=== PATIENT | female | born 1990 | race Caucasian/White ===

== ENCOUNTER → 2016-06-09 | Outpatient (CLI) | payer MEDICAID | LOC: SP 13:21 | PROVIDERS: ATTEND Specialist | DX: M79.606 Pain in leg, unspecified (principal); M79.89 Other specified soft tissue disorders | CPT/HCPCS: 93970 ==

== ENCOUNTER 2016-09-18 12:57 | Emergency (ER) | payer MEDICAID ==
[2016-09-18 13:16] VITALS: BP 133/101
--- NOTE | 2016-09-18 13:21 | ER Document Report ---
ED Medical Screen (RME) - General Chief Complaint: Nausea Stated Complaint: POSSIBLE REACTION Notes: This 26-year-old female patient comes emergency room complaining of nausea and detoxing from opiates. She reports she took naltrexone at 11:00 today. She took some Xanax and it is working now and she feels better. I have greeted and performed a rapid initial assessment of this patient. A comprehensive ED assessment and evaluation of the patient, analysis of test results and completion of the medical decision making process will be conducted by additional ED providers. TRAVEL OUTSIDE OF THE [place] IN LAST 30 DAYS: No - Related Data Allergies/Adverse Reactions: No Known Allergies Allergy (Verified 09/18/16 13:18) Past Medical History - Past Medical History Cardiac Medical History: Reports: Hx DVT Renal/ Medical History: Denies: Hx Peritoneal Dialysis GI Medical History: Reports: Hx Gastroesophageal Reflux Disease - Immunizations Immunizations up to date: Yes Hx Diphtheria, Pertussis, Tetanus Vaccination: Yes Physical Exam - Vital signs Vitals: Temp Pulse Resp BP Pulse Ox 97.7 F 70 18 133/101 H 100 09/18/16 13:13 09/18/16 13:13 09/18/16 13:13 09/18/16 13:13 09/18/16 13:13 Course - Vital Signs Vital signs: Temp Pulse Resp BP Pulse Ox 97.7 F 70 18 133/101 H 100 09/18/16 13:13 09/18/16 13:13 09/18/16 13:13 09/18/16 13:13 09/18/16 13:13
== END 2016-09-19 03:51 | disposition left against medical advice (07) ==
LOC: ER 12:57
DX: R11.0 Nausea (principal); Z53.20 Procedure and treatment not carried out because of patient's decision for unspecified reasons; Z86.718 Personal history of other venous thrombosis and embolism
CPT/HCPCS: 99281

== ENCOUNTER 2017-05-08 16:22 | Emergency (ER) | payer MEDICAID ==
[2017-05-08] MEDS ORDERED: LIDOCAINE 1% INJ-PF (10 MG/ML) 30 ML SDV INJ ONE (17:32)
--- NOTE | 2017-05-08 17:36 | ER Document Report ---
HPI - HPI Pain Level: 4 Notes: Patient is a 26-year-old female no significant past medical history presents ED complaining of a laceration to her posterior right fifth digit status post punching glass prior to arrival. Spouse states that the glass was the kind that breaks in large pieces. Patient states that immediately after cutting it she applied pressure and wrapped it and has not noticed any significant bleeding. Patient states that she is still able to feel her finger and is able to move it without any difficulties aside from the discomfort at the laceration site. She denies any history of MRSA. Denies any drug allergies. Denies any headache, fever, neck pain, URI, sore throat, chest pain, palpitations, syncope , cough, shortness of breath, wheeze, dyspnea, abdominal pain, nausea/vomiting/ diarrhea, dysuria, hematuria, numbness/tingling, muscle paralysis/weakness, or rash. Tetanus utd per patient. - ROS Notes: REVIEW OF SYSTEMS: CONSTITUTIONAL : Denies fever, chills, or sweats. Denies recent illness. EENT: Denies eye, ear, throat, or mouth pain or symptoms. Denies nasal or sinus congestion or discharge. Denies throat, tongue, or mouth swelling or difficulty swallowing. CARDIOVASCULAR: Denies chest pain. Denies palpitations or racing or irregular heart beat. RESPIRATORY: Denies cough, cold, or chest congestion. Denies shortness of breath, difficulty breathing, or wheezing. GASTROINTESTINAL: Denies abdominal pain or distention. Denies nausea, vomiting , or diarrhea. GENITOURINARY: Denies difficulty urinating, painful urination, burning, frequency, blood in urine, or discharge. MUSCULOSKELETAL: see hpi SKIN: Denies rash, lesions or sores. NEUROLOGICAL: Denies headache. Denies weakness or paralysis or loss of use of either side. Denies problems with gait or speech. Denies sensory loss, numbness, or tingling. ALL OTHER SYSTEMS REVIEWED AND NEGATIVE. Dictation was performed using [employer] voice recognition software - REPRODUCTIVE Reproductive: DENIES: : Past Medical History - Social History Smoking Status: Unknown if Ever Smoked Family History: Reviewed & Not Pertinent - Past Medical History Cardiac Medical History: Reports: Hx DVT Renal/ Medical History: Denies: Hx Peritoneal Dialysis GI Medical History: Reports: Hx Gastroesophageal Reflux Disease - Immunizations Immunizations up to date: Yes Hx Diphtheria, Pertussis, Tetanus Vaccination: Yes Vertical Provider Document - CONSTITUTIONAL Agree With Documented VS: Yes Notes: PHYSICAL EXAMINATION: GENERAL: Well-appearing, well-nourished and in no acute distress. A&Ox4 LUNGS: Breath sounds clear to auscultation bilaterally and equal. No wheezes rales or rhonchi. HEART: Regular rate and rhythm without murmurs, rubs, gallops. Musculoskeletal: Rt hand: FROM to passive/active. Strength 5+/5. N/V intact distal. + 2cm laceration to the posterior PIP joint of the 5th digit. Bleeding controlled. Mild tenderness to palp of the laceration site. No other bony tenderness appreciated. Extremities: No cyanosis, clubbing, or edema b/l. Peripheral pulses 2+. Capillary refill less than 3 seconds. NEUROLOGICAL: Normal speech, normal gait. Normal sensory, motor exams PSYCH: Normal mood, normal affect. SKIN: see MSK exam. Warm, Dry, normal turgor, no rashes or lesions noted. - INFECTION CONTROL TRAVEL OUTSIDE OF THE [place] IN LAST 30 DAYS: No - RESPIRATORY O2 Sat by Pulse Oximetry: 98 Course - Re-evaluation Re-evalutation: 05/08/17 18:20 Patient is an afebrile, well-hydrated, 26-year-old female who presents the ED with a right posterior fifth digit laceration at the PIP joint. Vitals are stable. PE is otherwise unremarkable for any neurovascular compromise, obvious tendon/ligament rupture, obvious fracture or dislocation. X-ray was unremarkable for any acute pathology including foreign body. Wound was thoroughly cleansed and irrigated and no foreign body was appreciated. Wound edges were approximated appropriately utilizing 5 simple interrupted sutures. Patient tolerated procedure well without any complications. Wound dressing placed along with a splint and wound instructions reviewed. I will send her home with a prophylactic antibiotic of Keflex. Tetanus is already up-to-date per patient. Conservative measures for symptoms. Recheck with your PCM in 2-3 days. Return to the ED with any worsening/concerning symptoms otherwise as reviewed discharge. Sutures will need removed in about 10 days. Patient is in agreement. - Vital Signs Vital signs: Temp Pulse Resp BP Pulse Ox 98.0 F 87 16 134/86 H 98 05/08/17 16:55 05/08/17 16:55 05/08/17 16:55 05/08/17 16:55 05/08/17 16:55 Procedures - Laceration/Wound Repair Right Posterior 5th digit Time completed: 18:15 Wound length (cm): 2 Wound's Depth, Shape: Superficial, Irregular, Flap Laceration pre-procedure: Sterile PPE donned, Sterile drapes applied, Other - chlorehexadine/saline Anesthetic type: 1% Lidocaine Volume Anesthetic (mLs): 8 Wound explored: Clean, No foreign body removed Irrigated w/ Saline (mLs): 60 Wound Debrided: Minimal Wound Repaired With: Sutures Suture Size/Type: 5:0, Nylon Number of Sutures: 5 Layer Closure?: No Post-procedure wound care: Sterile dressing applied, Splint applied Discharge - Discharge Clinical Impression: Finger laceration Qualifiers: Encounter type: initial encounter Finger: little finger Damage to nail status: without damage Foreign body presence: without foreign body Laterality: right Qualified Code(s): S61.216A - Laceration without foreign body of right little finger without damage to nail, initial encounter Condition: Stable Disposition: HOME, SELF-CARE Instructions: Antibiotic Ointment Protection ([facility]), Laceration Care ([facility]), Prophylactic Antibiotic ([facility]), Soap Cleansing ([facility]) Additional Instructions: Do not shower or bathe for 24 hours. After 24 hours you may shower but no submersion of the wound under water. Keep the original dressing on the wound for 24 hours unless the drainage soaks through. Change the dressing daily thereafter and keep the knots of the suture material clean from any dried discharge. You may leave the wound open to the air once there is no more discharge. Return to the ED and/or your PCM in 2-3 days for a recheck. Monitor for any signs of worsening pain or redness, purulent drainage, streaks, and/or fever. Return to the ED if noticing any of the above symptoms or as needed. Take medications as directed. Your sutures will need to be removed in about 10 days. Prescriptions: Cephalexin Monohydrate [Keflex 500 mg Capsule] 500 mg PO BID #14 capsule Forms: Elevated Blood Pressure Referrals: [facility] [Provider Group] - Follow up as needed
--- NOTE | 2017-05-08 17:54 | RADIOLOGY REPORT (SQ) ---
EXAM DESCRIPTION: HAND RIGHT 3 VIEWS COMPLETED DATE/TIME: 05/08/2017 5:46 pm REASON FOR STUDY: rt 5th digit laceration at PIP posteriorly, glass COMPARISON: None. EXAM PARAMETERS: NUMBER OF VIEWS: Three views. TECHNIQUE: AP, lateral and oblique radiographic images acquired of the right hand. LIMITATIONS: None. FINDINGS: MINERALIZATION: Normal. BONES: No acute fracture or dislocation. No worrisome bone lesions. JOINTS: No effusions. SOFT TISSUES: No soft tissue swelling. No foreign body. OTHER: No other significant finding. IMPRESSION: NEGATIVE STUDY OF THE RIGHT HAND. NO RADIOGRAPHIC EVIDENCE OF ACUTE INJURY. TECHNICAL DOCUMENTATION: JOB ID: [id number] [employer]- All Rights Reserved
[2017-05-08 18:35] VITALS: BP 111/69
== END 2017-05-08 18:35 | disposition home or self-care (01) ==
LOC: ER 16:22
DX: S61.216A Laceration without foreign body of right little finger without damage to nail, initial encounter (principal); W25.XXXA Contact with sharp glass, initial encounter
CPT/HCPCS: 99283; 73130; 12001; J3490

== ENCOUNTER 2017-11-01 06:33 | Emergency (ER) | payer MEDICAID ==
--- NOTE | 2017-11-01 07:12 | ER Document Report ---
ED General - General Chief Complaint: Leg Pain Stated Complaint: LEFT LEG PAIN Time Seen by Provider: 11/01/17 06:46 TRAVEL OUTSIDE OF THE [place] 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 Patient states she has not followed up with any vascular surgery patient states initially she was taken Eliquis 2 tablets in the morning 2 tablets at night however recently switched to 1 tablet in the morning 1 tablet night patient is unaware of the milligram dosing. Patient denies any complications were encountered bleeding. Patient denies fevers chills nausea vomiting diarrhea. Patient states pain is back in her leg mostly at the knee medial aspect and then medial thigh. Patient denies any trauma. No clear etiology as far as patient as far as why she developed clots. Patient otherwise is resting company denies any recent trauma or travel - Related Data Allergies/Adverse Reactions: No Known Allergies Allergy (Verified 05/08/17 16:25) Past Medical History - Social History Smoking Status: Current Every Day Smoker Chew tobacco use (# tins/day): No Frequency of alcohol use: None Drug Abuse: None Family History: Reviewed & Not Pertinent Patient has suicidal ideation: No Patient has homicidal ideation: No - Past Medical History Cardiac Medical History: Reports: Hx DVT Renal/ Medical History: Denies: Hx Peritoneal Dialysis GI Medical History: Reports: Hx Gastroesophageal Reflux Disease - Immunizations Immunizations up to date: Yes Hx Diphtheria, Pertussis, Tetanus Vaccination: Yes Review of Systems - Review of Systems Constitutional: No symptoms reported EENT: No symptoms reported Cardiovascular: No symptoms reported Respiratory: No symptoms reported Gastrointestinal: No symptoms reported Genitourinary: No symptoms reported Female Genitourinary: No symptoms reported Musculoskeletal: Other - Leg pain Skin: No symptoms reported Hematologic/Lymphatic: No symptoms reported Neurological/Psychological: No symptoms reported -: Yes All other systems reviewed and negative Physical Exam - Vital signs Vitals: Temp Pulse Resp BP Pulse Ox 98 F 100 18 133/69 H 100 11/01/17 06:40 11/01/17 06:40 11/01/17 06:40 11/01/17 06:40 11/01/17 06:40 Interpretation: Normal - General General appearance: Appears well, Alert - HEENT Head: Normocephalic, Atraumatic Eyes: Normal Pupils: PERRL - Respiratory Respiratory status: No respiratory distress Chest status: Nontender Breath sounds: Normal Chest palpation: Normal - Cardiovascular Rhythm: Regular Heart sounds: Normal auscultation Murmur: No - Abdominal Inspection: Normal Distension: No distension Bowel sounds: Normal Tenderness: Nontender Organomegaly: No organomegaly - Back Back: Normal, Nontender - Extremities General upper extremity: Normal inspection, Nontender, Normal color, Normal ROM , Normal temperature General lower extremity: Normal inspection, Nontender, Normal color, Normal ROM , Normal temperature, Normal weight bearing. No: Edema - No pitting edema there is a slight increase in size of the left leg compared to the right leg no pain to palpation pulses are intact at the dorsalis pedis and posterior tibial. , Kyung's sign - Neurological Neuro grossly intact: Yes Cognition: Normal Orientation: AAOx4 [place] Coma Scale Eye Opening: Spontaneous [place] Coma Scale Verbal: Oriented Bakari Coma Scale Motor: Obeys Commands Bakari Coma Scale Total: 15 Speech: Normal Motor strength normal: LUE, RUE, LLE, RLE Sensory: Normal - Psychological Associated symptoms: Normal affect, Normal mood - Skin Skin Temperature: Warm Skin Moisture: Dry Skin Color: Normal Course - Re-evaluation Re-evalutation: 11/01/17 14:19 No occlusive thrombosis is seen in on her ultrasound. Patient is already on Eliquis. 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 Patient was given Ultram for pain control. Patient discharged home. Sleeping resting upon my evaluation - Vital Signs Vital signs: Temp Pulse Resp BP Pulse Ox 98 F 100 18 133/69 H 100 11/01/17 06:40 11/01/17 06:40 11/01/17 06:40 11/01/17 06:40 11/01/17 06:40 - Laboratory Result Diagrams: 11/01/17 07:49 Laboratory results interpreted by me: 11/01/17 11/01/17 07:49 07:49 APTT 37.6 H Glucose 129 H Discharge - Discharge Clinical Impression: DVT (deep venous thrombosis) Qualifiers: DVT location: lower extremity Affected thrombotic vein of extremity: femoral Chronicity: acute Laterality: left Qualified Code(s): I82.412 - Acute embolism and thrombosis of left femoral vein Leg pain Qualifiers: Laterality: left Qualified Code(s): M79.605 - Pain in left leg Condition: Good Disposition: HOME, SELF-CARE Instructions: DVT Outpatient Treatment ([facility]) Additional Instructions: Please continue her Eliquis. Please take Ultram as prescribed. Return to ER symptoms worsen follow-up with your wheel cleaner oncologist and PCP. Your ultrasound today does not show an occlusive DVT there is still on the remnants of clot within the common femoral vein. The pain that you are having in her lower leg can be explained by possible changing of her gait due to having a DVT and straining his ligaments. Would also recommend taking Tylenol for pain control. Prescriptions: Tramadol HCl [Ultram 50 mg Tablet] 50 mg PO ASDIR PRN #20 tablet PRN Reason: Referrals: SUNITA BLACK MD [Primary Care Provider] - Follow up as needed
[2017-11-01 08:05] LABS: INTERNATIONAL RATION (INR) 1.07; PROTHROMBIN TIME 14.4 SEC (11.4-15.4)
[2017-11-01 08:06] LABS: PARTIAL THROMBOPLASTIN TIME 37.6 SEC (23.5-35.8)
[2017-11-01 08:16] LABS: ANION GAP 10 (5-19); BLOOD UREA NITROGEN 12 mg/dL (7-20); CALCIUM 9.9 mg/dL (8.4-10.2); CARBON DIOXIDE 26 mmol/L (22-30); CHLORIDE 106 mmol/L (98-107); CREATINE KINASE 130 U/L (30-135); GLUCOSE 129 mg/dL (75-110); POTASSIUM 3.8 mmol/L (3.6-5.0); SODIUM 142.3 mmol/L (137-145)
[2017-11-01] MEDS ORDERED: ACETAMINOPHEN 325 MG TABLET PO ONE (08:19)
--- NOTE | 2017-11-01 10:08 | RADIOLOGY REPORT (SQ) ---
EXAM DESCRIPTION: VENOUS UNILATERAL LOWER COMPLETED DATE/TIME: 11/01/2017 9:53 am REASON FOR STUDY: pain left leg / Hx clots COMPARISON: 10/18/2014 TECHNIQUE: Dynamic and static mcgowan scale and color images acquired of the left leg venous system. Se lected spectral images acquired with additional compression and augmentation maneuvers. The contralat eral common femoral vein and saphenofemoral junction were also imaged. Images stored on PACS. LIMITATIONS: None. FINDINGS: COMMON FEMORAL: Nonocclusive thrombus. FEMORAL: Nonocclusive thrombus proximally. POPLITEAL: Normal compression, augmentation. No visualized echogenic material on mcgowan scale. No defec ts on color images. CALF VESSELS: Normal compression, augmentation. No visualized echogenic material on mcgowan scale. No de fects on color images. GSV and SSV: Normal compression, augmentation. No visualized echogenic material on mcgowan scale. No def ects on color images. ANY DEEP VENOUS INSUFFICIENCY: Not evaluated. ANY EVIDENCE OF POPLITEAL CYST: No. OTHER: No other significant finding. CONTRALATERAL COMMON FEMORAL VEIN AND SAPHENOFEMORAL JUNCTION: Normal phasicity, compression and augmentation. No visualized echogenic material on mcgowan scale. No de fects on color images. IMPRESSION: NONOCCLUSIVE THROMBUS IDENTIFIED WITHIN THE COMMON FEMORAL AND PROXIMAL FEMORAL VEIN. TECHNICAL DOCUMENTATION: JOB ID: [id number] [employer]- All Rights Reserved Reading location - IP/workstation name: [email or web address]
[2017-11-01 11:03] VITALS: BP 114/69
== END 2017-11-01 11:03 | disposition home or self-care (01) ==
LOC: ER 06:33
DX: I82.412 Acute embolism and thrombosis of left femoral vein (principal); M79.605 Pain in left leg; F17.200 Nicotine dependence, unspecified, uncomplicated; Z86.718 Personal history of other venous thrombosis and embolism; Z79.02 Long term (current) use of antithrombotics/antiplatelets
CPT/HCPCS: 99284; 36415; 82550; 84702; 85610; 85730; 80048; 93971; J3490

== ENCOUNTER → 2017-11-03 | Outpatient (CLI) | payer MEDICAID ==
[2017-11-03 14:53] LABS: ABSOLUTE EOSINOPHILS # (AUTO) 0.1 10^3/uL (0.0-0.6); ABSOLUTE LYMPHOCYTES (AUTO) 1.7 10^3/uL (0.5-4.7); ABSOLUTE MONOCYTES (AUTO) 0.3 10^3/uL (0.1-1.4); ABSOLUTE NEUT (AUTO) 2.1 10^3/uL (1.7-8.2); BASOPHILS % (AUTO) 0.7 % (0-2); EOSINOPHILS % (AUTO) 1.7 % (0-6); HEMATOCRIT 39.1 % (36.0-47.0); HEMOGLOBIN 13.6 g/dL (12.0-15.5); MEAN CORPUSCULAR HEMOGLOBIN 32.2 pg (27.0-33.4); MEAN CORPUSCULAR HGB CONC 34.7 g/dL (32.0-36.0); MEAN CORPUSCULAR VOLUME 93 fl (80-97); MONOCYTES % (AUTO) 7.8 % (3-13); PLATELET COUNT 219 10^3/uL (150-450); RED BLOOD COUNT 4.21 10^6/uL (3.72-5.28); RED CELL DISTRIBUTION WIDTH 12.6 % (11.5-14.0); SEGMENTED NEUTROPHILS % (AUTO) 49.8 % (42-78); TOTAL CELLS COUNTED % (AUTO) 100 %; WHITE BLOOD COUNT 4.1 10^3/uL (4.0-10.5)
== END ==
LOC: OD 13:42
PROVIDERS: ATTEND Internal Medicine
DX: R21 Rash and other nonspecific skin eruption (principal); R53.83 Other fatigue
CPT/HCPCS: 36415; 85025

== ENCOUNTER 2018-08-22 00:59 | Emergency (ER) | payer SELFPAY ==
[2018-08-22 01:07] VITALS: BP 136/75
[2018-08-22] MEDS ORDERED: CLINDAMYCIN HCL 150 MG CAPSULE PO ONE ×2 (02:48)
[2018-08-22] MEDS ORDERED: IBUPROFEN 800 MG TABLET PO ONE (02:54)
--- NOTE | 2018-08-22 02:54 | ER Document Report ---
HPI - HPI Patient complains to provider of: toothache Time Seen by Provider: 08/22/18 02:38 Pain Level: 4 Context: Patient is a 28-year-old female presents to the emergency department 1 week of left lower tooth pain. Patient is denying any fever. Patient states the last time she saw a dentist was in May. States she was told she had to have the tooth pulled but has been unable to pay for it so she has returned to the dentist. Past medical history: DVT Medications: Eliquis, folic acid Allergies: None - REPRODUCTIVE Reproductive: DENIES: : Past Medical History - General Information source: Patient - Social History Smoking Status: Unknown if Ever Smoked Family History: Reviewed & Not Pertinent - Past Medical History Cardiac Medical History: Reports: Hx DVT Renal/ Medical History: Denies: Hx Peritoneal Dialysis GI Medical History: Reports: Hx Gastroesophageal Reflux Disease - Immunizations Immunizations up to date: Yes Hx Diphtheria, Pertussis, Tetanus Vaccination: Yes Vertical Provider Document - CONSTITUTIONAL Agree With Documented VS: Yes Notes: GENERAL: Alert, interacts well. No acute distress. HEAD: Normocephalic, atraumatic. EYES: Pupils equal, round, and reactive to light. Extraocular movements intact. ENT: Oral mucosa moist, tongue midline. No Gurinder's angina noted. Tooth in question is #18. Obvious dental caries noted with fillings, it is noted to be fractured, no gum erythema or fluctuance or induration noted. Patient's other teeth appear to be in well repair. NECK: Full range of motion. Supple. Trachea midline. No lymphadenopathy appreciated LUNGS: Clear to auscultation bilaterally, no wheezes, rales, or rhonchi. No respiratory distress. HEART: Regular rate and rhythm. No murmur ABDOMEN: Soft, non-tender. Non-distended. Bowel sounds present in all 4 quadrants. EXTREMITIES: Moves all 4 extremities spontaneously. No edema, normal radial and dorsalis pedis pulses bilaterally. No cyanosis. BACK: no cervical, thoracic, lumbar midline tenderness. No saddle anesthesia, normal distal neurovascular exam. NEUROLOGICAL: Alert and oriented x3. Normal speech. cranial nerves II through XII grossly intact PSYCH: Normal affect, normal mood. SKIN: Warm, dry, normal turgor. No rashes or lesions noted. - INFECTION CONTROL TRAVEL OUTSIDE OF THE [place] IN LAST 30 DAYS: No Course - Re-evaluation Re-evalutation: 08/22/18 02:56 Patient states she has been taking her 's leftover Augmentin for the last 5 days. States she has noticed no change in her last tooth ache or pain. Discussed with patient she should not be taking her 's medications. Also discussed use of clindamycin and [id number] Tylenol Motrin. Discussed follow-up at [facility] or [facility]. Patient voices understanding is stable for discharge. - Vital Signs Vital signs: Temp Pulse Resp BP Pulse Ox 98.1 F 99 18 136/75 H 99 08/22/18 01:06 08/22/18 01:06 08/22/18 01:06 08/22/18 01:06 08/22/18 01:06 Discharge - Discharge Clinical Impression: Toothache Tooth fracture Qualifiers: Encounter type: initial encounter Fracture type: closed Qualified Code(s): S02.5XXA - Fracture of tooth (traumatic), initial encounter for closed fracture Condition: Stable Disposition: HOME, SELF-CARE Instructions: [facility], Clindamycin ([facility]), Toothache ([facility]) Additional Instructions: as we discussed you have been seen and treated in the emergency department for a tooth infection. Please make sure you are taking antibiotics as prescribed. Please also take [id number] Tylenol Motrin for generalized pain. I have provided phone numbers for [facility] and [facility] for follow- up. Please return to the emergency room for any other concerning symptoms. [facility] [address] [place] [address], [id number] Prescriptions: Clindamycin HCl [Cleocin 150 mg Capsule] 450 mg PO Q8 7 Days capsule Fluconazole [Diflucan] 150 mg PO ONCE PRN #2 tablet PRN Reason: Referrals: [facility] [Provider Group] - Follow up as needed
[2018-08-22] MEDS ORDERED: ONDANSETRON ODT 4 MG TAB (6 TAB/ER DISP) PO PRN (03:06)
== END 2018-08-22 03:13 | disposition home or self-care (01) ==
LOC: ER 00:59
DX: S02.5XXA Fracture of tooth (traumatic), initial encounter for closed fracture (principal); X58.XXXA Exposure to other specified factors, initial encounter; K08.89 Other specified disorders of teeth and supporting structures; K02.9 Dental caries, unspecified; I82.409 Acute embolism and thrombosis of unspecified deep veins of unspecified lower extremity; Z79.01 Long term (current) use of anticoagulants; Z79.899 Other long term (current) drug therapy
CPT/HCPCS: 99282

== ENCOUNTER 2018-10-06 12:01 | Emergency (ER) | payer SELFPAY ==
[2018-10-06] MEDS ORDERED: PHENAZOPYRIDINE HCL 200 MG TABLET PO ONE (13:01)
--- NOTE | 2018-10-06 13:04 | ER Document Report ---
ED Medical Screen (RME) - General Chief Complaint: Urinary Problem Stated Complaint: BLOOD IN URINE,PAINFUL URINATION Time Seen by Provider: 10/06/18 12:55 Primary Care Provider: SUNITA BLACK MD [Primary Care Provider] - Follow up as needed Mode of Arrival: Ambulatory Information source: Patient Notes: Patient presents emergency department with complaints of urinary frequency and pain with void for the past week. Noted blood in her urine 2 days ago. Also complains of low back pain. Has history of kidney stones. No complaints of fever vomiting diarrhea. Patient is on Eliquis for history of DVTs. I have greeted and performed a rapid initial assessment of this patient. A comprehensive ED assessment and evaluation of the patient, analysis of test re sults and completion of the medical decision making process will be conducted by additional ED providers. Dictation of this chart was performed using voice recognition software; therefore, there may be some unintended grammatical errors. TRAVEL OUTSIDE OF THE [place] IN LAST 30 DAYS: No - Related Data Allergies/Adverse Reactions: No Known Allergies Allergy (Verified 10/06/18 12:03) Past Medical History - Past Medical History Cardiac Medical History: Reports: Hx DVT Renal/ Medical History: Denies: Hx Peritoneal Dialysis GI Medical History: Reports: Hx Gastroesophageal Reflux Disease - Immunizations Immunizations up to date: Yes Hx Diphtheria, Pertussis, Tetanus Vaccination: Yes Physical Exam - Vital signs Vitals: Temp Pulse Resp BP Pulse Ox 98.2 F 97 18 128/72 H 99 10/06/18 12:06 10/06/18 12:06 10/06/18 12:06 10/06/18 12:06 10/06/18 12:06 Course - Vital Signs Vital signs: Temp Pulse Resp BP Pulse Ox 98.1 F 119 H 18 140/77 H 98 10/06/18 14:47 10/06/18 14:47 10/06/18 14:47 10/06/18 14:47 10/06/18 14:47 - Laboratory Laboratory results interpreted by me: 10/06/18 13:08 Urine Nitrite POSITIVE H Urine Urobilinogen 4.0 H Doctor's Discharge - Discharge Clinical Impression: UTI (urinary tract infection) Qualifiers: Urinary tract infection type: site unspecified Hematuria presence: without hematuria Qualified Code(s): N39.0 - Urinary tract infection, site not specified Condition: Stable Disposition: HOME, SELF-CARE Instructions: Cephalexin ([facility]), Urinary Anesthetic Agent ([facility]), Urinary Tract Infection ([facility]) Additional Instructions: *You have been evaluated for pain while voiding, UTI *Take medication as prescribed *Push fluids *Follow up with your primary care provider within one week for recheck *A Urine culture is pending, if you need a different antibiotic you will be contacted *Return to ED for worsening condition, changes, needs Monitor your blood pressure. Your blood pressure was elevated today. This may be because you were anxious, in pain or because you need medication. It is important to follow up with your primary care provider for full evaluation. Prescriptions: Cephalexin Monohydrate [Keflex 500 mg Capsule] 500 mg PO BID #20 capsule Phenazopyridine HCl [Pyridium 200 mg Tablet] 200 mg PO TID #15 tablet Forms: Elevated Blood Pressure, Return to Work Referrals: SUNITA BLACK MD [Primary Care Provider] - Follow up as needed
[2018-10-06 13:35] LABS: APPEARANCE,URINE CLEAR; BILIRUBIN,URINE NEGATIVE (NEGATIVE); COLOR,URINE AMBER; GLUCOSE, URINE NEGATIVE (NEGATIVE); KETONES,URINE NEGATIVE (NEGATIVE); LEUKOCYTE ESTERASE,URINE NEGATIVE (NEGATIVE); NITRITE,URINE POSITIVE (NEGATIVE); PROTEIN,URINE NEGATIVE (NEGATIVE); URINE SPECIFIC GRAVITY 1.009
[2018-10-06] MEDS ORDERED: ACETAMINOPHEN 325 MG TABLET PO ONE (14:47)
--- NOTE | 2018-10-06 14:47 | ER Document Report ---
HPI - HPI Patient complains to provider of: pain with void Time Seen by Provider: 10/06/18 12:55 Onset: Last week Onset/Duration: Persistent Quality of pain: Burning Severity: Moderate Pain Level: 3 Context: Patient presents emergency department with complaints of urinary frequency and pain with void for the past week. Noted blood in her urine 2 days ago. Also complains of low back pain. Has history of kidney stones. No complaints of fever vomiting diarrhea. Patient is on Eliquis for history of DVTs. Associated Symptoms: None Exacerbated by: Other - voiding Relieved by: Denies Similar symptoms previously: Yes Recently seen / treated by doctor: No - REPRODUCTIVE Reproductive: DENIES: : - DERM Skin Color: Normal Past Medical History - General Information source: Patient Last Menstrual Period: n/a - Social History Smoking Status: Current Every Day Smoker Cigarette use (# per day): Yes Chew tobacco use (# tins/day): No Frequency of alcohol use: None Drug Abuse: None Family History: Reviewed & Not Pertinent Patient has suicidal ideation: No Patient has homicidal ideation: No - Past Medical History Cardiac Medical History: Reports: Hx DVT Renal/ Medical History: Denies: Hx Peritoneal Dialysis GI Medical History: Reports: Hx Gastroesophageal Reflux Disease - Immunizations Immunizations up to date: Yes Hx Diphtheria, Pertussis, Tetanus Vaccination: Yes Vertical Provider Document - CONSTITUTIONAL Agree With Documented VS: Yes Exam Limitations: No Limitations General Appearance: WD/WN, No Apparent Distress - INFECTION CONTROL TRAVEL OUTSIDE OF THE [place] IN LAST 30 DAYS: No - HEENT HEENT: Atraumatic, Normocephalic - NECK Neck: Supple - RESPIRATORY Respiratory: No Respiratory Distress - CARDIOVASCULAR Cardiovascular: Regular Rate - GI/ABDOMEN Gastrointestinal: Abdomen Soft - BACK Back: Normal Inspection - NEURO Level of Consciousness: Awake, Alert, Appropriate Motor/Sensory: No Motor Deficit - DERM Integumentary: Warm, Dry Course - Re-evaluation Re-evalutation: 10/06/18 19:38 UA with positive nitrite ,patient instructed on UTI. Patient prescribed Keflex and Pyridium. Upon discharge patient's heart rate was 119. Patient encouraged to stay to receive pain medications, fluids and reevaluate. Patient declines to stay. Reports she needs to go home. Patient was instructed on signs and symptoms of increasing kidney infection fever vomiting increased pain and instructed to return to the emergency department. She verbalized understanding to all instructions. Dictation of this chart was performed using voice recognition software; therefore, there may be some unintended grammatical errors. - Vital Signs Vital signs: Temp Pulse Resp BP Pulse Ox 98.2 F 97 18 128/72 H 99 10/06/18 12:06 10/06/18 12:06 10/06/18 12:06 10/06/18 12:06 10/06/18 12:06 - Laboratory Laboratory results interpreted by me: 10/06/18 13:08 Urine Nitrite POSITIVE H Urine Urobilinogen 4.0 H Discharge - Discharge Clinical Impression: UTI (urinary tract infection) Qualifiers: Urinary tract infection type: site unspecified Hematuria presence: without hematuria Qualified Code(s): N39.0 - Urinary tract infection, site not specified Condition: Stable Disposition: HOME, SELF-CARE Instructions: Cephalexin ([facility]), Urinary Anesthetic Agent ([facility]), Urinary Tract Infection ([facility]) Additional Instructions: *You have been evaluated for pain while voiding, UTI *Take medication as prescribed *Push fluids *Follow up with your primary care provider within one week for recheck *A Urine culture is pending, if you need a different antibiotic you will be contacted *Return to ED for worsening condition, changes, needs Monitor your blood pressure. Your blood pressure was elevated today. This may be because you were anxious, in pain or because you need medication. It is important to follow up with your primary care provider for full evaluation. Prescriptions: Cephalexin Monohydrate [Keflex 500 mg Capsule] 500 mg PO BID #20 capsule Phenazopyridine HCl [Pyridium 200 mg Tablet] 200 mg PO TID #15 tablet Forms: Elevated Blood Pressure, Return to Work Referrals: SUNITA BLACK MD [Primary Care Provider] - Follow up as needed
[2018-10-06 14:48] VITALS: BP 140/77
== END 2018-10-06 14:52 | disposition home or self-care (01) ==
LOC: ER 12:01
DX: N39.0 Urinary tract infection, site not specified (principal); M54.5 Low back pain; F17.210 Nicotine dependence, cigarettes, uncomplicated; Z87.442 Personal history of urinary calculi; Z79.01 Long term (current) use of anticoagulants; Z86.718 Personal history of other venous thrombosis and embolism
CPT/HCPCS: 99283; 87086; 81025; 81001; J3490

== ENCOUNTER 2020-03-06 00:48 | Emergency (ER) | payer SELFPAY ==
[2020-03-06 01:29] VITALS: BP 127/75
== END 2020-03-06 05:10 | disposition left against medical advice (07) ==
LOC: ER 00:48
DX: Z53.21 Procedure and treatment not carried out due to patient leaving prior to being seen by health care provider (principal)